=== PATIENT | male | born 1960 | race American Indian/Alaskan Native ===

== ENCOUNTER 2017-01-25 17:39 | Inpatient (IN) | payer OTHER ==
[2017-01-25] MEDS ORDERED: CATAPRES PO ONE (18:20)
--- NOTE | 2017-01-25 18:33 | Emergency Department Report ---
HPI - General Chief Complaint: Medical Clearance Time Seen by Provider: 01/25/17 18:09 - HPI HPI: Room 17 The patient is a 57-year-old male was found sleeping on the ground in the rain. The patient is homeless and reportedly passersby called EMS to notify them Man sleeping in the rain. EMS found the patient and inquired about a "Geetha's call" missing person but no one was reported matching this patient's description. The patient has mumbling speech is only occasionally intelligible. The patient states his only complaint is feeling cold and now that he is under a warmer he is feeling better Location: [see above] Duration: Unknown Quality: [see above] Severity: [see above] Modifying factors: [see above] Context: [see above] Mode of transportation: [not driving] ED Past Medical Hx - Past Medical History Previous Medical History?: Yes Hx Hypertension: Yes - Surgical History Past Surgical History?: No - Family History Family history: no significant - Social History Smoking Status: Current Every Day Smoker Substance Use Type: None - Medications Home Medications: Home Medications Medication Instructions Recorded Confirmed Last Taken Type No Known Home Medications [No 01/25/17 01/25/17 Unknown History Reported Home Medications] ED Review of Systems ROS: Stated complaint: HYPOTHERMIA Other details as noted in HPI Comment: All other systems reviewed and negative Constitutional: chills. denies: fever Eyes: denies: eye pain, eye discharge, vision change ENT: denies: ear pain, throat pain Respiratory: denies: cough, shortness of breath, wheezing Cardiovascular: denies: chest pain, palpitations Endocrine: no symptoms reported Gastrointestinal: denies: abdominal pain, nausea, diarrhea Genitourinary: denies: urgency, dysuria Musculoskeletal: denies: back pain, joint swelling, arthralgia Skin: lesions Neurological: denies: headache, weakness, paresthesias Psychiatric: denies: anxiety, depression Hematological/Lymphatic: denies: easy bleeding, easy bruising Physical Exam - Physical Exam Vital Signs: Vital Signs 01/25/17 18:00 Temperature 95.4 F L Pulse Rate 73 Respiratory 20 Rate Blood Pressure 198/116 [Left] O2 Sat by Pulse 96 Oximetry Physical Exam: GENERAL: The patient is well-developed male sleeping under a warmer not appearing to be in acute distress. Foul odor emanating from the HEENT: Normocephalic. Atraumatic. NECK: Supple. Trachea midline CHEST/LUNGS: Clear to auscultation. There is no respiratory distress noted. HEART/CARDIOVASCULAR: Regular. There is no tachycardia. There is no gallop rub or murmur. ABDOMEN: Abdomen is soft, nontender. Patient has normal bowel sounds. There is no abdominal distention. SKIN: Skin sloughing from sole of the feet bilaterally. Follow or emanating from feet NEURO: The patient is awake and oriented to place and self. The patient is cooperative. The patient has mumbling speech that is sometimes intelligible MUSCULOSKELETAL: There is no evidence of acute injury. ED Course Vital Signs 01/25/17 18:00 Temperature 95.4 F L Pulse Rate 73 Respiratory 20 Rate Blood Pressure 198/116 [Left] O2 Sat by Pulse 96 Oximetry ED Medical Decision Making - Lab Data Result diagrams: 01/25/17 18:24 01/25/17 18:24 Laboratory Tests 01/25/17 01/25/17 01/25/17 18:24 18:24 18:24 WBC 9.8 RBC 4.05 Hgb 9.4 L Hct 31.6 L MCV 78 L MCH 23 L MCHC 30 L RDW 16.0 H Plt Count 301 Lymph % (Auto) 11.4 L [place] % (Auto) 5.3 Eos % (Auto) 0.0 Baso % (Auto) 0.3 Lymph # 1.1 L [place] # 0.5 Eos # 0.0 Baso # 0.0 Seg Neutrophils % 83.0 H Seg Neutrophils # 8.1 H PT 15.0 H INR 1.19 H APTT 27.5 Sodium 144 Potassium 4.1 Chloride 101.8 Carbon Dioxide 24 Anion Gap 22 BUN 31 H Creatinine 1.1 Estimated GFR > 60 BUN/Creatinine Ratio 28.18 Glucose 88 Calcium 8.8 Total Bilirubin 0.7 AST 96 H ALT 49 Alkaline Phosphatase 98 Ammonia Total Creatine Kinase 2204 H CK-MB (CK-2) 58.2 H CK-MB (CK-2) Rel Index 2.6 Troponin T 0.112 H* Total Protein 6.8 Albumin 3.7 L Albumin/Globulin Ratio 1.2 01/25/17 18:24 WBC RBC Hgb Hct MCV MCH MCHC RDW Plt Count Lymph % (Auto) [place] % (Auto) Eos % (Auto) Baso % (Auto) Lymph # [place] # Eos # Baso # Seg Neutrophils % Seg Neutrophils # PT INR APTT Sodium Potassium Chloride Carbon Dioxide Anion Gap BUN Creatinine Estimated GFR BUN/Creatinine Ratio Glucose Calcium Total Bilirubin AST ALT Alkaline Phosphatase Ammonia 29.0 Total Creatine Kinase CK-MB (CK-2) CK-MB (CK-2) Rel Index Troponin T Total Protein Albumin Albumin/Globulin Ratio - EKG Data -: EKG Interpreted by Me EKG shows normal: sinus rhythm Rate: normal - EKG Data When compared to previous EKG there are: previous EKG unavailable - Radiology Data Radiology results: report reviewed (CT head), image reviewed (CT head) CT head (read by radiologist)-no CT evidence of acute intracranial abnormality - Differential Diagnosis homelessness, trench foot, hypertension Critical care attestation.: If time is entered above; I have spent that time in minutes in the direct care of this critically ill patient, excluding procedure time. ED Disposition Clinical Impression: Rhabdomyolysis, Elevated troponin, Hypothermia Disposition: OP ADMITTED IP TO THIS HOSP Is pt being admited?: Yes Does the pt Need Aspirin: Yes Condition: Fair Referrals: PRIMARY CARE, [Primary Care Provider] - 3-5 Days Time of Disposition: 19:40 (patient admitted to Dr. Rosario. Care of patient turned over to Dr. Rosario)
[2017-01-25 18:47] LABS: Basophils % (Auto) 0.3 % (0.0-1.8); Mean Corpuscular HGB Conc 30 % (32-34); Mean Corpuscular Volume 78 fl (84-94); Platelet Count 301 K/mm3 (140-440); Red Blood Count 4.05 M/mm3 (3.65-5.03); White Blood Count 9.8 K/mm3 (4.5-11.0)
[2017-01-25 18:48] LABS: Hemoglobin 9.4 gm/dl (11.8-15.2)
[2017-01-25 18:49] LABS: Hematocrit 31.6 % (35.5-45.6); Mean Corpuscular Hemoglobin 23 pg (28-32)
[2017-01-25 18:59] LABS: INR 1.19 (0.87-1.13)
[2017-01-25 19:00] LABS: Partial Thromboplastin Time 27.5 Sec. (24.2-36.6)
[2017-01-25 19:01] LABS: Creatine Kinase MB 58.2 ng/mL (0.0-4.0)
[2017-01-25 19:03] LABS: Alanine Aminotransferase 49 units/L (7-56); Albumin 3.7 g/dL (3.9-5); Albumin/Globulin Ratio 1.2 %; Alkaline Phosphatase 98 units/L (35-129); Anion Gap 22 mmol/L; BUN/Creatinine Ratio 28.18; Bilirubin,Total 0.7 mg/dL (0.1-1.2); Blood Urea Nitrogen 31 mg/dL (9-20); Calcium 8.8 mg/dL (8.4-10.2); Carbon Dioxide 24 mmol/L (22-30); Chloride 101.8 mmol/L (98-107); Glucose 88 mg/dL (75-100); Potassium 4.1 mmol/L (3.6-5.0); Sodium 144 mmol/L (137-145); Total Protein 6.8 g/dL (6.3-8.2)
--- NOTE | 2017-01-25 19:13 | Cat Scan Report ---
FINAL REPORT PROCEDURE: CT HEAD/BRAIN WO CON TECHNIQUE: Computerized tomography of the head was performed without contrast material. HISTORY: found sleeping on the ground COMPARISON: No prior studies are available for comparison. FINDINGS: There are diffuse involutional changes, with prominence of the ventricles and the sulci. No CT evidence of acute intracranial hemorrhage, mass, hydrocephalus, or acute territorial infarction. The intracranial arteries are symmetric in density. There is mild left maxillary sinus mucosal thickening. No acute fracture is seen. IMPRESSION: No CT evidence of acute intracranial abnormality
[2017-01-25 19:23] LABS: Creatine Kinase 2204 units/L (55-170)
[2017-01-25] MEDS ORDERED: NACL 0.9% 1000 ML 1,000 ML ONE (19:38)
[2017-01-25] MEDS ORDERED: ASPIRIN PO ONE (19:41)
[2017-01-25 19:46] LABS: Cholesterol 155 mg/dL (50-199); HDL Cholesterol 88 mg/dL (40-59); LDL Cholesterol,Direct 56 mg/dL (50-130); Triglycerides 58 mg/dL (2-149)
--- NOTE | 2017-01-25 19:58 | Admit Criteria Form ---
Admission Criteria Documentation: MUSCULOSKELETAL DISEASE GRG Clinical Indications for Admission to Inpatient Care (Place 'X' for any and all applicable criteria): Hospital admission is needed for appropriate care of the patient because of ANY ONE of the following: [ ]I. Fracture, dislocation, or other musculoskeletal injury requiring inpatient care(medical) as indicated by ANY ONE of the following(4)(5)(6)(7) [ ]a) Vertebral fracture requiring observation for instability or neurologic compromise (8) [ ]b) Compartment syndrome (proven or cannot be ruled out during observation level of care) (9) [ ]c) Limb-threatening injury [ ]d) Major injury requiring inpatient stabilization such as traction initiation or external fixation before internal fixation or closure of complex or open fracture [ ]e) Major injury requiring inpatient treatment after emergency or observation level care (as appropriate) [ ]f) Severe pain requiring acute inpatient management [ ]II. Newly diagnosed or suspected bone, joint, or orthopedic device infection (e.g., osteomyelitis, septic arthritis) needing ANY ONE of the following(1)(2)(3) [ ]a) IV antibiotics that cannot be initiated in other than inpatient setting (e.g., patient too unstable or home infusion not available) [ ]b) Device removal or replacement [ ]c) Bone or soft tissue debridement [ ]d) Joint drainage (drain placement or repetitive aspirations) [ ]III. Severe rheumatologic disease (e.g., systemic lupus erythematosus, rheumatoid arthritis) with complications or comorbidities (Also use Optimal Recovery Care Criteria or General Recovery Criteria as appropriate on the basis of predominant condition), including ANY ONE of the following(10 )(11)(12)(13) [ ]a) Severe infection (e.g., ARCHEOLOGY PROFESSOR infection, sepsis) (14) [ ]b) Respiratory complications, including ANY ONE of the following: [ ]i) Pleural effusion with respiratory compromise [ ]ii) Pulmonary hypertension with congestive failure [ ]iii) Respiratory failure [ ]iv) Pulmonary hemorrhage (15) [ ]c) Hematologic disease, including ANY ONE of the following: [ ]i) Coagulopathy with bleeding [ ]ii) Thrombosis with hypercoagulable state [ ]iii) Thrombotic thrombocytopenic purpura [ ]d) Cerebritis with seizures, psychosis, or other severe abnormalities [ ]e) Vertebral destruction with monitoring needed for cervical myelopathy& possible respiratory compromise [ ]f) Exacerbation that requires inpatient treatment (e.g., intravenous immunosuppression) (16) [ ]g) Acute renal failure [ ]IV. Severe vasculitis with complications or comorbidities (Also use Optimal Recovery Care Criteria or General Recovery Criteria as appropriate on the basis of predominant condition), including ANY ONE of the following(11)(12)(17)(18)(19)(20) [ ]a) ARCHEOLOGY PROFESSOR vasculitis with seizures, psychosis, or other severe abnormalities (22) [ ]b) Renal failure (16) [ ]c) Pulmonary hemorrhage (15) [ ]d) Cerebral infarction [ ]e) Gastrointestinal ischemia [ ]f) Gangrene or threatened amputation [ ]g) Exacerbation that requires inpatient treatment (e.g., intravenous immunosuppression) (19)(21) [ ]V. Severe myopathy as indicated by ANY ONE of the following (28)(29) [ ]a) New onset of airway compromise or inability to swallow [ ]b) Respiratory deterioration with observation needed for impending respiratory failure [ ]c) Exacerbation that requires inpatient treatment (e.g., intravenous immunosuppression) [ ]. Severe gout (crystal arthropathy) as indicated by ANY ONE of the following (23)(24) [ ]a) Severe pain requiring acute inpatient management [ ]b) Exacerbation that requires inpatient treatment (e.g., intravenous treatment) [X ]VII.Rhabdomyolysis and ANY ONE of the following (25)(26)(27) [ ]a) Acute renal failure [X ]b) Need for intravenous hydration after emergency or observation level care (as appropriate) [ ]c) Inability to maintain oral hydration [ ]d) Change in mental status [ ]e) Electrolyte abnormality that remains after emergency or observation level care (as appropriate) [ ]VIII Post amputation complication, as indicated by ANY ONE of the following [ ]a) Infection [ ]b) Dehiscence [ ]c) Myodesis failure [ ]IX. Severe pain requiring acute inpatient management as indicated by ALL of the following (30)(31)(32) [ ]a) Continuous or frequent (e.g., every 2 to 4 hrs) parenteral analgesics required [A] [ ]b) Rapid improvement expected from treatment or acute intervention ( e.g., surgery, anesthesia procedure[B] [ ]X. Musculoskeletal Disease and ALL of the following: [ ]a) Symptom or finding for which emergency and observation care have failed or are not considered appropriate (Use General Criteria: Observation Care as appropriate) [ ]b) Presence of ANY ONE of the following [ ]i) A General Admission Criteria [ ]ii) A Pediatric General Admission Criteria The original [facility] content created by [facility] has been revised. The portions of the content which have been revised are identified through the use of italic text or in bold, and [facility] has neither reviewed nor approved the modified material. All other unmodified content is copyright [facility]. Please see references footnoted in the original [facility] edition 2016 Admission Criteria Met: Yes
[2017-01-25 20:03] LABS: Urine Drugs of Abuse Note Disclamer
[2017-01-25 20:16] LABS: Bilirubin,Urine NEG (Negative); Blood,Urine SM (Negative); Ketones,Urine 20 mg/dL (Negative); Leukocyte Esterase,Urine TR (Negative); Mucus,Urine FEW /HPF; Nitrite,Urine NEG (Negative); Urobilinogen,Urine < 2.0 mg/dL (<2.0)
[2017-01-25] MEDS ORDERED: PERCOCET 5/325 PO PRN (21:10)
[2017-01-25] MEDS ORDERED: TYLENOL PO PRN (21:10)
[2017-01-25] MEDS ORDERED: ZOFRAN IV PRN (21:10)
[2017-01-25] MEDS ORDERED: MILK OF MAGNESIA PO PRN (21:10)
[2017-01-25] MEDS ORDERED: DULCOLAX PR PRN (21:10)
[2017-01-25] MEDS ORDERED: DILAUDID IV PRN (21:10)
--- NOTE | 2017-01-25 21:10 | Event Note ---
Date: 01/25/17 See H/p in reports Rhabdomyolysis Dehydration Positive Troponin Hypothermia UTI Homelessness
[2017-01-25] MEDS ORDERED: SODIUM CHLORIDE FLUSH SYRINGE 10 ML IV PRN (21:24)
[2017-01-25] MEDS ORDERED: PEPCID IV ONE (21:49)
[2017-01-25] MEDS ORDERED: ROCEPHIN 2,000 MG in NACL 0.9% 50 ML IV SCH (22:00)
[2017-01-25] MEDS: PEPCID IV SCH (22:00)
[2017-01-25] MEDS ORDERED: ROCEPHIN/NS 2 GM/100 ML 2 GM/100 ML BAG IV SCH ×2 (22:17→23:00)
[2017-01-25 23:47] LABS: Creatine Kinase MB 30.3 ng/mL (0.0-4.0)
[2017-01-26] MEDS: D5NS 1,000 ML IV SCH ×3 (02:20→22:16)
[2017-01-26 06:09] LABS: Basophils % (Auto) 0.7 % (0.0-1.8); Eosinophils % (Auto) 0.6 % (0.0-4.3); Hematocrit 24.8 % (35.5-45.6); Hemoglobin 7.7 gm/dl (11.8-15.2); Mean Corpuscular HGB Conc 31 % (32-34); Mean Corpuscular Volume 77 fl (84-94); Platelet Count 238 K/mm3 (140-440); Red Blood Count 3.23 M/mm3 (3.65-5.03); White Blood Count 7.3 K/mm3 (4.5-11.0)
[2017-01-26 06:21] LABS: Mean Corpuscular Hemoglobin 24 pg (28-32)
[2017-01-26 06:34] LABS: Alanine Aminotransferase 33 units/L (7-56); Albumin 2.9 g/dL (3.9-5); Albumin/Globulin Ratio 1.3 %; Alkaline Phosphatase 76 units/L (35-129); Anion Gap 16 mmol/L; Bilirubin,Total 0.6 mg/dL (0.1-1.2); Blood Urea Nitrogen 26 mg/dL (9-20); Calcium 7.9 mg/dL (8.4-10.2); Carbon Dioxide 26 mmol/L (22-30); Chloride 105.5 mmol/L (98-107); Glucose 106 mg/dL (75-100); Potassium 3.6 mmol/L (3.6-5.0); Sodium 144 mmol/L (137-145); Total Protein 5.1 g/dL (6.3-8.2)
--- NOTE | 2017-01-26 08:56 | History and Physical Report ---
CHIEF COMPLAINT: The patient was found sleeping on the ground in the rain. HISTORY OF PRESENT ILLNESS: A 57-year-old male very poor historian -[place] brought in by EMS because he was found sleeping on the ground in the rain. The patient is homeless. He reported ____ called the EMS to notify them of a man sleeping in the rain. EMS found the patient and inquired about a missing person, but no one was reported matching the patient's description. The patient had mumbling speech and had a low temperature while in the ER. Answers questions and monosyllables. Alert, but not oriented. Very poor historian. Cannot elicit any history. The patient states if discharge he can go somewhere, but the patient is not clear where he wants to go. PAST MEDICAL HISTORY: Questionable history of hypertension. PAST SURGICAL HISTORY: None. SOCIAL HISTORY: Smokes about a pack a day. FAMILY HISTORY: Unavailable. REVIEW OF SYSTEMS: The patient found sleeping in the rain. The patient has a low temperature ranging around 94-96. The patient unable to give any answer to review of systems questions. Hence, review of systems could not be done. PHYSICAL EXAMINATION: GENERAL: On examination, middle-aged male looks older than his age. VITAL SIGNS: Blood pressure is 128/65 and also the initial blood pressure was 177/112. Initial temperature was 95.4. Later in the ER, the blood pressure has come down to 129/79 and temperature was 98.2. HEENT: Dry mucous membranes. Dry tongue. NECK: Supple. No lymphadenopathy. No thyromegaly. LUNGS: Clear to auscultation and percussion. Good air entry. CARDIOVASCULAR: S1 and S2 heard. No gallop. No murmur. No rub. Apical impulse in left fifth intercostal space and midclavicular line. ABDOMEN: Soft and benign. No hepatosplenomegaly. No guarding, no rigidity. Hernial orifices are normal. EXTREMITIES: Good pedal pulses. No pedal edema. CENTRAL NERVOUS SYSTEM: Alert, but mumbling words and semi-oriented. Very poor historian. Moves all 4 extremities. SKIN: Normal. LABORATORY DATA: Significant for white count of 9800, H and H is 9.4 and 31.6, and platelet count is 301,000. Sodium is 144, potassium is 4.1, BUN and creatinine 31 and 1.1, chloride is 101.8, bicarbonate is 24, glucose is 88, AST is 96, ALT is 49, total CK is ___, CK-MB is 58,.2 and troponin is 0.112. HDL cholesterol is 88. Cholesterol was 155. Urine specific gravity shows 10 white cells. Drug screen was essentially negative. Head CT was negative. ASSESSMENT AND PLAN: 1. Rhabdomyolysis ___ IV fluids for the time being and monitor creatinine kinase. 2. High troponin probably secondary to high CK and the patient being on the floor for a long time. I do not think there is a cardiac issue at this point. We will get stress test in the morning. 3. Dehydration. The patient to be given IV fluids for the time being. 4. Urinary tract infection. The patient is started on Rocephin 2 grams IV q.24. 5. Social issues. The patient is homeless. Case management consult requested. 6. Deep venous thrombosis prophylaxis, Lovenox 40 mg subcutaneous daily. In summary, the patient has [id number] rhabdomyolysis, elevated troponin, which can be secondary to elevated CK and CK-MB, UTI, and homelessness. JOB# [id number] ROULA/BEBE
[2017-01-26] MEDS: ROCEPHIN/NS 2 GM/100 ML 2 GM/100 ML BAG IV SCH (09:14)
[2017-01-26] MEDS: PEPCID IV SCH ×2 (09:15→22:08)
[2017-01-26] MEDS ORDERED: LOVENOX SUB-Q SCH (10:00)
--- NOTE | 2017-01-26 11:17 | Progress Note ---
Assessment and Plan Assessment and plan: Patient is a 57-year-old man with a history of hypertension and tobacco dependency who was homeless, found with altered mental status, sleeping in the rain. He was found to have the following: - hypothermia resolved - accelerated hypertension - elevated troponin - rhabdomyolysis - drop in hct, maybe dilutional, stop sc lovenox, use scd, repeat - abnormal ua stress was ordered and pending continue ivf for the rhabdo, once improve will discharge History Interval history: Patient seen and examined. Follow up on altered mental status. Overnight uneventful. No cp, sob, n/v or severe headaches. Imaging, old records, testing, labs, nursing notes reviewed. Hospitalist Physical - Physical exam Narrative exam: GEN: WDWN, unkempt, NAD, AWAKE, ALERT, ORIENTATED 3 HEENT: NCAT, PERRL, EOMI, OP CLEAR NECK: SUPPLE, NO THYROMEGALY, NO JVD, NO LAD CVS: RRR, NORMAL S1S2 LUNGS/CHEST: CTA B, NORMAL CHEST EXPANSION B, GOOD AIR ENTRY B ABD: SOFT NTND, GBS, NO REBOUND OR GUARDING EXT/SKIN: NO SIGNIFICANT EDEMA OR RASH MSK: FROM X 4 EXTREMITIES NEURO: CN 2-12 GROSSLY INTACT, NO FOCAL DEFICITS PSY: CALM - Constitutional Vitals: Temp Pulse Resp BP Pulse Ox 98.2 F 67 16 151/88 98 01/26/17 07:47 01/26/17 07:47 01/26/17 07:47 01/26/17 07:47 01/26/17 07:47 Results - Labs CBC & Chem 7: 01/26/17 05:37 01/26/17 05:37 Labs: Laboratory Last Values WBC 7.3 K/mm3 (4.5-11.0) 01/26/17 05:37 RBC 3.23 M/mm3 (3.65-5.03) L 01/26/17 05:37 Hgb 7.7 gm/dl (11.8-15.2) L 01/26/17 05:37 Hct 24.8 % (35.5-45.6) L D 01/26/17 05:37 MCV 77 fl (84-94) L 01/26/17 05:37 MCH 24 pg (28-32) L 01/26/17 05:37 MCHC 31 % (32-34) L 01/26/17 05:37 RDW 16.0 % (13.2-15.2) H 01/26/17 05:37 Plt Count 238 K/mm3 (140-440) 01/26/17 05:37 Lymph % (Auto) 11.1 % (13.4-35.0) L 01/26/17 05:37 [place] % (Auto) 7.5 % (0.0-7.3) H 01/26/17 05:37 Eos % (Auto) 0.6 % (0.0-4.3) 01/26/17 05:37 Baso % (Auto) 0.7 % (0.0-1.8) 01/26/17 05:37 Lymph # 0.8 K/mm3 (1.2-5.4) L 01/26/17 05:37 [place] # 0.5 K/mm3 (0.0-0.8) 01/26/17 05:37 Eos # 0.0 K/mm3 (0.0-0.4) 01/26/17 05:37 Baso # 0.1 K/mm3 (0.0-0.1) 01/26/17 05:37 Seg Neutrophils % 80.1 % (40.0-70.0) H 01/26/17 05:37 Seg Neutrophils # 5.9 K/mm3 (1.8-7.7) 01/26/17 05:37 PT 15.0 Sec. (12.2-14.9) H 01/25/17 18:24 INR 1.19 (0.87-1.13) H 01/25/17 18:24 APTT 27.5 Sec. (24.2-36.6) 01/25/17 18:24 Sodium 144 mmol/L (137-145) 01/26/17 05:37 Potassium 3.6 mmol/L (3.6-5.0) 01/26/17 05:37 Chloride 105.5 mmol/L (98-107) 01/26/17 05:37 Carbon Dioxide 26 mmol/L (22-30) 01/26/17 05:37 Anion Gap 16 mmol/L 01/26/17 05:37 BUN 26 mg/dL (9-20) H 01/26/17 05:37 Creatinine 1.0 mg/dL (0.8-1.5) 01/26/17 05:37 Estimated GFR > 60 ml/min 01/26/17 05:37 BUN/Creatinine Ratio 26.00 % 01/26/17 05:37 Glucose 106 mg/dL (75-100) H 01/26/17 05:37 Hemoglobin A1c 5.4 % (4-6) 01/25/17 22:58 Calcium 7.9 mg/dL (8.4-10.2) L 01/26/17 05:37 Total Bilirubin 0.6 mg/dL (0.1-1.2) 01/26/17 05:37 AST 58 units/L (5-40) H 01/26/17 05:37 ALT 33 units/L (7-56) 01/26/17 05:37 Alkaline Phosphatase 76 units/L (35-129) 01/26/17 05:37 Ammonia 29.0 umol/L (25-60) 01/25/17 18:24 Total Creatine Kinase 1388 units/L (55-170) H 01/26/17 00:59 CK-MB (CK-2) 31.0 ng/mL (0.0-4.0) H 01/26/17 00:59 CK-MB (CK-2) Rel Index 2.2 (0-4) 01/26/17 00:59 Troponin T 0.083 ng/mL (0.00-0.029) H 01/26/17 00:59 Total Protein 5.1 g/dL (6.3-8.2) L D 01/26/17 05:37 Albumin 2.9 g/dL (3.9-5) L 01/26/17 05:37 Albumin/Globulin Ratio 1.3 % 01/26/17 05:37 Triglycerides 58 mg/dL (2-149) 01/25/17 18:24 Cholesterol 155 mg/dL (50-199) 01/25/17 18:24 LDL Cholesterol Direct 56 mg/dL (50-130) 01/25/17 18:24 HDL Cholesterol 88 mg/dL (40-59) H 01/25/17 18:24 Cholesterol/HDL Ratio 1.76 % 01/25/17 18:24 Urine Color Yellow (Yellow) 01/25/17 19:29 Urine Turbidity Clear (Clear) 01/25/17 19:29 Urine pH 5.0 (5.0-7.0) 01/25/17 19:29 Ur Specific [place] 1.023 (1.003-1.030) 01/25/17 19:29 Urine Protein 30 mg/dl mg/dL (Negative) 01/25/17 19:29 Urine Glucose (UA) Neg mg/dL (Negative) 01/25/17 19:29 Urine Ketones 20 mg/dL (Negative) 01/25/17 19:29 Urine Blood Sm (Negative) 01/25/17 19:29 Urine Nitrite Neg (Negative) 01/25/17 19:29 Urine Bilirubin Neg (Negative) 01/25/17 19:29 Urine Urobilinogen < 2.0 mg/dL (<2.0) 01/25/17 19:29 Ur Leukocyte Esterase Tr (Negative) 01/25/17 19:29 Urine WBC (Auto) 10.0 /HPF (0.0-6.0) H 01/25/17 19:29 Urine RBC (Auto) 1.0 /HPF (0.0-6.0) 01/25/17 19:29 U Epithel Cells (Auto) < 1.0 /HPF (0-13.0) 01/25/17 19:29 Urine Mucus Few /HPF 01/25/17 19:29 Urine Opiates Screen Presumptive negative 01/25/17 19:29 Urine Methadone Screen Presumptive negative 01/25/17 19:29 Ur Barbiturates Screen Presumptive negative 01/25/17 19:29 Ur Phencyclidine Scrn Presumptive negative 01/25/17 19:29 Ur Amphetamines Screen Presumptive negative 01/25/17 19:29 U Benzodiazepines Scrn Presumptive negative 01/25/17 19:29 Urine Cocaine Screen Presumptive negative 01/25/17 19:29 U Marijuana (THC) Screen Presumptive negative 01/25/17 19:29 Drugs of Abuse Note Disclamer 01/25/17 19:29 - Imaging and Cardiology CT Scan - head: report reviewed
--- NOTE | 2017-01-26 14:23 | Consultation ---
History of Present Illness Consult date: 01/26/17 Requesting physician: SEDA ANTOINE Consult reason: elevated troponin History of present illness: The patient is a 57 year old male with a history of hypertension, tobacco abuse who presented to the ER after a passerby noticed that he was sleeping on the ground in the rain yesterday. Upon presentation, he was mumbling and incoherent and found to be hypothermic. Head CT negative for any acute abnormalities. Troponin level is mildly elevated but initial CK > 2000. Currently, he is alert and oriented. He denies any chest pain, palpitations, shortness of breath, nausea, vomiting or diaphoresis. Past History Past Medical History: hypertension Past Surgical History: No surgical history Social history: smoking (smokes 1 pack per week), other (currently homeless). denies: alcohol abuse, prescription drug abuse, IV drug use, full code Family history: no significant family history Medications and Allergies Allergies Allergy/AdvReac Type Severity Reaction Status Date / Time No Known Allergies Allergy Unverified 01/25/17 17:48 Home Medications Medication Instructions Recorded Confirmed Last Taken Type No Known Home Medications [No 01/25/17 01/25/17 Unknown History Reported Home Medications] Active Meds: Active Medications Acetaminophen (Tylenol) 650 mg PO Q4H PRN PRN Reason: Pain MILD(1-3)/Fever >100.5/LOREDO Bisacodyl (Dulcolax) 10 mg [place] QDAY PRN PRN Reason: Constipation unrelieved by MOM Famotidine (Pepcid) 20 mg IV BID [facility] Last Admin: 01/26/17 09:15 Dose: 20 mg Hydromorphone HCl (Dilaudid) 0.5 mg IV Q3H PRN PRN Reason: Pain , Severe (7-10) Dextrose/Sodium Chloride (D5ns) 1,000 mls @ 125 mls/hr IV DIRECT [facility] Last Admin: 01/26/17 09:15 Dose: 125 mls/hr Ceftriaxone Sodium (Rocephin/Ns 2 Gm/100 Ml) 2 gm in 100 mls @ 200 mls/hr IV Q24HR [facility] Last Admin: 01/26/17 09:14 Dose: 200 mls/hr Magnesium Hydroxide (Milk Of Magnesia) 30 ml PO Q4H PRN PRN Reason: Constipation Ondansetron HCl (Zofran) 4 mg IV Q8H PRN PRN Reason: N/V unrelieved by Reglan Oxycodone/Acetaminophen (Percocet 5/325) 1 tab PO Q6H PRN PRN Reason: Pain, Moderate (4-6) Sodium Chloride (Sodium Chloride Flush Syringe 10 Ml) 10 ml IV PRN PRN PRN Reason: LINE FLUSH Review of Systems Constitutional: no fever, no chills Ears, nose, mouth and throat: no nasal congestion, no nasal discharge, no sinus pressure Cardiovascular: no chest pain, no palpitations, no shortness of breath, no dyspnea on exertion Respiratory: no cough, no shortness of breath, no dyspnea on exertion, no congestion, no wheezing Gastrointestinal: no abdominal pain, no nausea, no vomiting, no diarrhea Genitourinary Male: no dysuria, no hematuria Musculoskeletal: no neck stiffness, no neck pain, no myalgias Integumentary: no rash, no pruritis Neurological: no parathesias, no numbness, no tingling, no headaches Endocrine: no cold intolerance, no heat intolerance Hematologic/Lymphatic: no easy bruising, no easy bleeding Allergic/Immunologic: no urticaria, no wheezing Physical Examination Last Vital Signs Temp 97.6 F 01/26/17 15:10 Pulse 73 01/26/17 15:10 Resp 18 01/26/17 15:10 BP 149/78 01/26/17 15:10 Pulse Ox 99 01/26/17 15:10 General appearance: no acute distress HEENT: Positive: Normocephaly, Mucus Membranes Moist Neck: Positive: neck supple, trachea midline Cardiac: Positive: Reg Rate and Rhythm, S1/S2 Lungs: Positive: clear to auscultation Neuro: Positive: Grossly Intact Abdomen: Positive: Soft, Active Bowel Sounds. Negative: Tender Skin: Negative: Rash Extremities: Absent: edema Results 01/26/17 05:37 01/26/17 05:37 Cardiac Enzymes 01/25/17 01/26/17 01/26/17 Range/Units 22:58 00:59 05:37 AST 58 H (5-40) units/L CK-MB (CK-2) 30.3 H 31.0 H (0.0-4.0) ng/mL CBC 01/26/17 Range/Units 05:37 WBC 7.3 (4.5-11.0) K/mm3 RBC 3.23 L (3.65-5.03) M/mm3 Hgb 7.7 L (11.8-15.2) gm/dl Hct 24.8 L D (35.5-45.6) % Plt Count 238 (140-440) K/mm3 Lymph # 0.8 L (1.2-5.4) K/mm3 [place] # 0.5 (0.0-0.8) K/mm3 Eos # 0.0 (0.0-0.4) K/mm3 Baso # 0.1 (0.0-0.1) K/mm3 Comprehensive Metabolic Panel 01/26/17 Range/Units 05:37 Sodium 144 (137-145) mmol/L Potassium 3.6 (3.6-5.0) mmol/L Chloride 105.5 (98-107) mmol/L Carbon Dioxide 26 (22-30) mmol/L BUN 26 H (9-20) mg/dL Creatinine 1.0 (0.8-1.5) mg/dL Glucose 106 H (75-100) mg/dL Calcium 7.9 L (8.4-10.2) mg/dL AST 58 H (5-40) units/L ALT 33 (7-56) units/L Alkaline Phosphatase 76 (35-129) units/L Total Protein 5.1 L D (6.3-8.2) g/dL Albumin 2.9 L (3.9-5) g/dL - Imaging and Cardiology EKG: image reviewed EKG interpretations - Telemetry EKG Rhythm: Sinus Rhythm - EKG Sinus rhythms and dysrhythmias: sinus rhythm Chamber hypertrophy or enlargement: left ventricular hypertro Repolarization changes or abnormalities: ST or T wave suggestive of ischemia Assessment and Plan Altered mental status-->resolved head CT negative Hypothermia-->resolved Elevated troponin-->consistent with rhabdomyolysis continue IVF Hypertension Lexiscan thallium stress test in am Anemia no active bleeding will monitor The patient has been seen in conjunction with Dr. Benavides who agrees with the assessment and plan of care. Thank you Dr. Antoine for allowing us to participate in the care of this patient.
[2017-01-27 03:23] LABS: Hematocrit 25.2 % (35.5-45.6); Hemoglobin 7.6 gm/dl (11.8-15.2); Mean Corpuscular HGB Conc 30 % (32-34); Mean Corpuscular Volume 78 fl (84-94); Platelet Count 212 K/mm3 (140-440); Red Blood Count 3.25 M/mm3 (3.65-5.03); White Blood Count 5.9 K/mm3 (4.5-11.0)
[2017-01-27 03:37] LABS: Mean Corpuscular Hemoglobin 23 pg (28-32)
[2017-01-27 06:33] LABS: Anion Gap 13 mmol/L; BUN/Creatinine Ratio 17.77; Blood Urea Nitrogen 16 mg/dL (9-20); Calcium 7.8 mg/dL (8.4-10.2); Carbon Dioxide 26 mmol/L (22-30); Chloride 108.5 mmol/L (98-107); Creatine Kinase 548 units/L (55-170); Glucose 111 mg/dL (75-100); Potassium 3.7 mmol/L (3.6-5.0); Sodium 144 mmol/L (137-145)
[2017-01-27 08:18] VITALS: BP 160/89
[2017-01-27] MEDS: D5NS 1,000 ML IV SCH (08:36)
[2017-01-27] MEDS: PEPCID IV SCH (09:53)
[2017-01-27] MEDS: ROCEPHIN/NS 2 GM/100 ML 2 GM/100 ML BAG IV SCH (09:53)
--- NOTE | 2017-01-27 09:55 | Progress Note ---
Assessment and Plan Assessment and plan: Patient is a 57-year-old man with a history of hypertension and tobacco dependency who was homeless, found with altered mental status, sleeping in the rain. He was found to have the following: - hypothermia resolved - accelerated hypertension - elevated troponin - rhabdomyolysis - drop in hct, maybe dilutional, stop sc lovenox, use scd, repeat, fobt - abnormal ua-contaminated most likely, asymptomatic stress was ordered and pending continue ivf for the rhabdo, once improve will discharge d/c if stress test negative History Interval history: Patient seen and examined. Follow up on altered mental status, resolved. Overnight uneventful. No cp, sob, n/v or severe headaches. Imaging, old records , testing, labs, nursing notes reviewed. Hospitalist Physical - Physical exam Narrative exam: GEN: WDWN, unkempt, NAD, AWAKE, ALERT, ORIENTATED 3 HEENT: NCAT, PERRL, EOMI, OP CLEAR NECK: SUPPLE, NO THYROMEGALY, NO JVD, NO LAD CVS: RRR, NORMAL S1S2 LUNGS/CHEST: CTA B, NORMAL CHEST EXPANSION B, GOOD AIR ENTRY B ABD: SOFT NTND, GBS, NO REBOUND OR GUARDING EXT/SKIN: NO SIGNIFICANT EDEMA OR RASH MSK: FROM X 4 EXTREMITIES NEURO: CN 2-12 GROSSLY INTACT, NO FOCAL DEFICITS PSY: CALM - Constitutional Vitals: Temp Pulse Resp BP Pulse Ox 98.3 F 73 16 160/89 99 01/27/17 07:15 01/27/17 07:15 01/27/17 07:15 01/27/17 07:15 01/27/17 07:15 General appearance: Present: no acute distress Results - Labs CBC & Chem 7: 01/27/17 02:46 01/27/17 02:46 Labs: Laboratory Last Values WBC 5.9 K/mm3 (4.5-11.0) 01/27/17 02:46 RBC 3.25 M/mm3 (3.65-5.03) L 01/27/17 02:46 Hgb 7.6 gm/dl (11.8-15.2) L 01/27/17 02:46 Hct 25.2 % (35.5-45.6) L 01/27/17 02:46 MCV 78 fl (84-94) L 01/27/17 02:46 MCH 23 pg (28-32) L 01/27/17 02:46 MCHC 30 % (32-34) L 01/27/17 02:46 RDW 16.0 % (13.2-15.2) H 01/27/17 02:46 Plt Count 212 K/mm3 (140-440) 01/27/17 02:46 Lymph % (Auto) 11.1 % (13.4-35.0) L 01/26/17 05:37 [place] % (Auto) 7.5 % (0.0-7.3) H 01/26/17 05:37 Eos % (Auto) 0.6 % (0.0-4.3) 01/26/17 05:37 Baso % (Auto) 0.7 % (0.0-1.8) 01/26/17 05:37 Lymph # 0.8 K/mm3 (1.2-5.4) L 01/26/17 05:37 [place] # 0.5 K/mm3 (0.0-0.8) 01/26/17 05:37 Eos # 0.0 K/mm3 (0.0-0.4) 01/26/17 05:37 Baso # 0.1 K/mm3 (0.0-0.1) 01/26/17 05:37 Seg Neutrophils % 80.1 % (40.0-70.0) H 01/26/17 05:37 Seg Neutrophils # 5.9 K/mm3 (1.8-7.7) 01/26/17 05:37 PT 15.0 Sec. (12.2-14.9) H 01/25/17 18:24 INR 1.19 (0.87-1.13) H 01/25/17 18:24 APTT 27.5 Sec. (24.2-36.6) 01/25/17 18:24 Sodium 144 mmol/L (137-145) 01/27/17 02:46 Potassium 3.7 mmol/L (3.6-5.0) 01/27/17 02:46 Chloride 108.5 mmol/L (98-107) H 01/27/17 02:46 Carbon Dioxide 26 mmol/L (22-30) 01/27/17 02:46 Anion Gap 13 mmol/L 01/27/17 02:46 BUN 16 mg/dL (9-20) 01/27/17 02:46 Creatinine 0.9 mg/dL (0.8-1.5) 01/27/17 02:46 Estimated GFR > 60 ml/min 01/27/17 02:46 BUN/Creatinine Ratio 17.77 % 01/27/17 02:46 Glucose 111 mg/dL (75-100) H 01/27/17 02:46 Hemoglobin A1c 5.4 % (4-6) 01/25/17 22:58 Calcium 7.8 mg/dL (8.4-10.2) L 01/27/17 02:46 Total Bilirubin 0.6 mg/dL (0.1-1.2) 01/26/17 05:37 AST 58 units/L (5-40) H 01/26/17 05:37 ALT 33 units/L (7-56) 01/26/17 05:37 Alkaline Phosphatase 76 units/L (35-129) 01/26/17 05:37 Ammonia 29.0 umol/L (25-60) 01/25/17 18:24 Total Creatine Kinase 548 units/L (55-170) H 01/27/17 02:46 CK-MB (CK-2) 31.0 ng/mL (0.0-4.0) H 01/26/17 00:59 CK-MB (CK-2) Rel Index 2.2 (0-4) 01/26/17 00:59 Troponin T 0.083 ng/mL (0.00-0.029) H 01/26/17 00:59 Total Protein 5.1 g/dL (6.3-8.2) L D 01/26/17 05:37 Albumin 2.9 g/dL (3.9-5) L 01/26/17 05:37 Albumin/Globulin Ratio 1.3 % 01/26/17 05:37 Triglycerides 58 mg/dL (2-149) 01/25/17 18:24 Cholesterol 155 mg/dL (50-199) 01/25/17 18:24 LDL Cholesterol Direct 56 mg/dL (50-130) 01/25/17 18:24 HDL Cholesterol 88 mg/dL (40-59) H 01/25/17 18:24 Cholesterol/HDL Ratio 1.76 % 01/25/17 18:24 Urine Color Yellow (Yellow) 01/25/17 19:29 Urine Turbidity Clear (Clear) 01/25/17 19:29 Urine pH 5.0 (5.0-7.0) 01/25/17 19:29 Ur Specific [place] 1.023 (1.003-1.030) 01/25/17 19:29 Urine Protein 30 mg/dl mg/dL (Negative) 01/25/17 19:29 Urine Glucose (UA) Neg mg/dL (Negative) 01/25/17 19:29 Urine Ketones 20 mg/dL (Negative) 01/25/17 19:29 Urine Blood Sm (Negative) 01/25/17 19:29 Urine Nitrite Neg (Negative) 01/25/17 19:29 Urine Bilirubin Neg (Negative) 01/25/17 19:29 Urine Urobilinogen < 2.0 mg/dL (<2.0) 01/25/17 19:29 Ur Leukocyte Esterase Tr (Negative) 01/25/17 19:29 Urine WBC (Auto) 10.0 /HPF (0.0-6.0) H 01/25/17 19:29 Urine RBC (Auto) 1.0 /HPF (0.0-6.0) 01/25/17 19:29 U Epithel Cells (Auto) < 1.0 /HPF (0-13.0) 01/25/17 19:29 Urine Mucus Few /HPF 01/25/17 19:29 Urine Opiates Screen Presumptive negative 01/25/17 19:29 Urine Methadone Screen Presumptive negative 01/25/17 19:29 Ur Barbiturates Screen Presumptive negative 01/25/17 19:29 Ur Phencyclidine Scrn Presumptive negative 01/25/17 19:29 Ur Amphetamines Screen Presumptive negative 01/25/17 19:29 U Benzodiazepines Scrn Presumptive negative 01/25/17 19:29 Urine Cocaine Screen Presumptive negative 01/25/17 19:29 U Marijuana (THC) Screen Presumptive negative 01/25/17 19:29 Drugs of Abuse Note Disclamer 01/25/17 19:29
--- NOTE | 2017-01-27 09:56 | Discharge Summary ---
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 He was found to have the following: - hypothermia resolved - accelerated hypertension - elevated troponin - rhabdomyolysis - drop in hct, maybe dilutional, stop sc lovenox, use scd, repeat, fobt - abnormal ua-contaminated most likely, asymptomatic - bp up due to nss stress was ordered and pending continue ivf for the rhabdo, once improve will discharge d/c if stress test negative Disposition: DISCHARGED TO HOME OR SELFCARE Time spent for discharge: 35 minutes Core Measure Documentation - Palliative Care Palliative Care/ Comfort Measures: Not Applicable - Core Measures Any of the following diagnoses?: none - VTE Discharge Requirements Deep Vein Thrombosis/Pulmonary Embolism Present on Admission: No Has pt received <5 days of overlap therapy or INR<2.0: No Anticoagulant overlap therapy prescribed at discharge: No Contraindication No Overlap Therapy order at DC: Not Indicated Exam - Physical Exam Narrative exam: GEN: WDWN, unkempt, NAD, AWAKE, ALERT, ORIENTATED 3 HEENT: NCAT, PERRL, EOMI, OP CLEAR NECK: SUPPLE, NO THYROMEGALY, NO JVD, NO LAD CVS: RRR, NORMAL S1S2 LUNGS/CHEST: CTA B, NORMAL CHEST EXPANSION B, GOOD AIR ENTRY B ABD: SOFT NTND, GBS, NO REBOUND OR GUARDING EXT/SKIN: NO SIGNIFICANT EDEMA OR RASH MSK: FROM X 4 EXTREMITIES NEURO: CN 2-12 GROSSLY INTACT, NO FOCAL DEFICITS PSY: CALM - Constitutional Vitals: Temp Pulse Resp BP Pulse Ox 98.3 F 73 16 160/89 99 01/27/17 07:15 01/27/17 07:15 01/27/17 07:15 01/27/17 07:15 01/27/17 07:15 Plan Activity: advance as tolerated (no strenous activites until cleared by PCP. ) Diet: low salt Follow up with: PRIMARY CARE, [Primary Care Provider] - 3-5 Days
--- NOTE | 2017-01-27 12:29 | Progress Note ---
Assessment and Plan Altered mental status-->resolved head CT negative Hypothermia-->resolved Elevated troponin-->consistent with rhabdomyolysis continue IVF no chest pain no acute EKG changes stress test cancelled due to significant anemia Hypertension stable Anemia no active bleeding will monitor Elevated troponin is likely secondary to rhabdomyolysis. Given significant anemia and absence of any cardiac symptoms, will hold off on stress testing at this time. Recommend continuing medical management. Patient may be discharged from a cardiac standpoint. Follow up in the office in 2 weeks. The patient has been seen in conjunction with Dr. Benavides who agrees with the assessment and plan of care. Subjective Date of service: 01/27/17 Principal diagnosis: elevated troponin Interval history: The patient is resting in bed. No new complaints. Stress test cancelled this morning due to significant anemia. Objective Last Vital Signs Temp 98.3 F 01/27/17 07:15 Pulse 73 01/27/17 07:15 Resp 16 01/27/17 07:15 BP 160/89 01/27/17 07:15 Pulse Ox 99 01/27/17 07:15 - Physical Examination General: No Apparent Distress HEENT: Positive: Normocephaly, Mucus Membranes Moist Neck: Positive: neck supple, trachea midline Cardiac: Positive: Reg Rate and Rhythm, S1/S2 Lungs: Positive: clear to auscultation Neuro: Positive: Grossly Intact Abdomen: Positive: Soft, Active Bowel Sounds. Negative: Tender Skin: Negative: Rash Extremities: Absent: edema - Labs and Meds CBC 01/27/17 Range/Units 02:46 WBC 5.9 (4.5-11.0) K/mm3 RBC 3.25 L (3.65-5.03) M/mm3 Hgb 7.6 L (11.8-15.2) gm/dl Hct 25.2 L (35.5-45.6) % Plt Count 212 (140-440) K/mm3 Comprehensive Metabolic Panel 01/27/17 Range/Units 02:46 Sodium 144 (137-145) mmol/L Potassium 3.7 (3.6-5.0) mmol/L Chloride 108.5 H (98-107) mmol/L Carbon Dioxide 26 (22-30) mmol/L BUN 16 (9-20) mg/dL Creatinine 0.9 (0.8-1.5) mg/dL Glucose 111 H (75-100) mg/dL Calcium 7.8 L (8.4-10.2) mg/dL - Imaging and Cardiology EKG: image reviewed - EKG Sinus rhythms and dysrhythmias: sinus rhythm Chamber hypertrophy or enlargement: left ventricular hypertro Repolarization changes or abnormalities: ST or T wave suggestive of ischemia
== END 2017-01-27 16:14 | disposition home or self-care (01) | DRG 558 ==
LOC: ED 17:39 → 3A 21:10
PROVIDERS: ADMIT Internal Medicine; ATTEND Internal Medicine
DX: M62.82 Rhabdomyolysis (principal); N39.0 Urinary tract infection, site not specified; T68.XXXA Hypothermia, initial encounter; I10 Essential (primary) hypertension; E86.0 Dehydration; F17.210 Nicotine dependence, cigarettes, uncomplicated; D64.9 Anemia, unspecified; Z59.0 Homelessness
CPT/HCPCS: 36415; 70450; 80048; 80053; 80061; 80307; 81001; 82140; 82550; 82553; 83036; 84484; 85025; 85027; 85610; 85730; 93005; 93010; 96374; J0696; J1650; J7030; J7042